=== PATIENT | female | born 2000 | race Two or more races ===

== ENCOUNTER 2023-01-18 11:32 | Emergency (ER) | payer MEDICAID, OTHER ==
[~2023-01-18] VITALS: Ht 165.1 cm; Wt 99.8 kg
--- NOTE | 2023-01-18 12:04 | NUR ---
The patient is presented to ER for c/o lower back pain and left leg "i can't feel my leg" s/p fall from skateboard 6 days ago. Rates pains 5/10. No apparent deformity noted. Will continue to monitor the patient.
--- NOTE | 2023-01-18 12:05 | NUR ---
DR BALDERAS AT THE BEDSIDE
--- NOTE | 2023-01-18 12:33 | NUR ---
THE PATIENT REFUSES TO GIVE URINE SPECIMEN. THE PATIENT SIGNED PREGANCY WAIVER. DR SHERRIE WRIGHT.
--- NOTE | 2023-01-18 12:34 | NUR ---
PT TAKEN TO CT VIA [facility]
[2023-01-18] MEDS ORDERED: IBUP-1955 PO (13:48)
[2023-01-18] MEDS ORDERED: METH4TAB3 PO (13:48)
[2023-01-18] MEDS ORDERED: KETOROLAC TROMETHAMINE 15 MG/ML VIAL ONE (13:52)
[2023-01-18] MEDS ORDERED: KETOROLAC TROMETHAMINE INJ 30 MG/ML VIAL IM ONE (14:00)
--- NOTE | 2023-01-18 14:14 | NUR ---
Patient discharged to home in stable condition. Written and verbal after care instructions given. Patient verbalizes understanding of instruction.
[2023-01-18 14:15] VITALS: BP 126/63
== END 2023-01-18 14:15 | disposition home or self-care (01) ==
LOC: ER 11:52
DX: S84.92XA Injury of unspecified nerve at lower leg level, left leg, initial encounter (principal); M54.50 Low back pain, unspecified; J45.909 Unspecified asthma, uncomplicated; Z88.0 Allergy status to penicillin; V00.131A Fall from skateboard, initial encounter; Y93.89 Activity, other specified; Y92.89 Other specified places as the place of occurrence of the external cause; Y99.8 Other external cause status
CPT/HCPCS: 99285; 72131; 96372; 73610; 73630; 73564; 72192; J1885

== ENCOUNTER 2024-03-26 13:59 | Emergency (ER) | payer MEDICAID, OTHER ==
[~2024-03-26] VITALS: Ht 162.6 cm; Wt 102.5 kg
[~2024-03-26 13:59] MED LIST: IBUP-1955 PO; METH4TAB3 PO
[2024-03-26 14:10] VITALS: BP 130/86; TEMP 98.3
[2024-03-26 15:30] VITALS: O2SAT 98
== END 2024-03-26 15:32 | disposition home or self-care (01) ==
LOC: ER 14:02
DX: F41.0 Panic disorder [episodic paroxysmal anxiety] (principal); J45.909 Unspecified asthma, uncomplicated; Z88.0 Allergy status to penicillin

== ENCOUNTER 2025-07-02 12:02 | Emergency (ER) | payer MEDICAID, OTHER ==
[~2025-07-02] VITALS: Ht 162.6 cm; Wt 93.0 kg
[2025-07-02 12:51] LABS: PLATELET COUNT (AUTO) 270 K/uL (150-450); RED BLOOD CELL COUNT(AUTO) 4.87 MIL/uL (4.0-5.2); RED CELL DISTRIBUTION WIDTH 13.7 % (11.5-15.0); WHITE BLOOD COUNT (AUTO) 8.2 K/uL (4.3-11.0)
[2025-07-02 13:03] LABS: CALCIUM, SERUM 9.6 mg/dL (8.5-10.1); CREATININE 0.7 mg/dL (0.6-1.3); SODIUM SERUM 139 mmol/L (136-145); UREA NITROGEN, BLOOD 8 mg/dL (7-18)
[2025-07-02 13:16] LABS: NT-PRO BNP 24 pg/mL (0-125)
[2025-07-02 14:22] VITALS: BP 110/69; TEMP 98; O2SAT 97
== END 2025-07-02 14:23 | disposition home or self-care (01) ==
LOC: ER 12:05
DX: F41.1 Generalized anxiety disorder (principal); R07.89 Other chest pain; F43.0 Acute stress reaction; F53.0 Postpartum depression; J45.909 Unspecified asthma, uncomplicated; Z88.0 Allergy status to penicillin
CPT/HCPCS: 36415; 71045-TC; 80048-TC; 83880; 84484-TC; 85025-TC; 85378-TC